=== PATIENT | male | born 1985 | race Caucasian/White ===

== ENCOUNTER 2017-11-19 11:41 | Emergency (ER) | payer SELFPAY ==
[2017-11-19 12:34] VITALS: BP 126/75; PULSE 61; RESP 14; TEMP 97.5; O2SAT 99
[2017-11-19] MEDS ORDERED: GELATIN 12 MM/7 MM FOAM TOPICAL ONE (14:00)
--- NOTE | 2017-11-19 14:05 | PD ---
HPI Chief Complaint: Laceration/Skin Injury Time Seen by Provider: 13:30 Travel History International Travel<30 days: No Contact w/Intl Traveler<30days: No Traveled to known affect area: No History of Present Illness HPI This is a 32-year-old male here with a laceration to his right thumb pad caused by scissors approximately 20 hours ago. He presents today for evaluation for continued bleeding of the laceration site. He cleansed the area thoroughly after the injury. He applied a clean dry pressured dressing. Today the wound continued to bleed prompting his visit. He reports normal sensation and full range of motion of the finger. He has pain in the site of the laceration only. Symptom severity mild to moderate. PFSH Past Medical History Medical History: Denies Significant Hx Diminished Hearing: No Tetanus Vaccination: Unknown Influenza Vaccination: No Social History Alcohol Use: Yes Tobacco Use: Yes (1ppd) Substance Use: No Allergies-Medications (Allergen,Severity, Reaction): Coded Allergies: Penicillins (Verified Allergy, Severe, Anaphylaxis, 11/19/17) codeine (Verified Allergy, Severe, Anaphylaxis, 11/19/17) morphine (Verified Allergy, Severe, Anaphylaxis, 11/19/17) Reported Meds & Prescriptions Reported Meds & Active Scripts Active Bactrim DS (Sulfamethoxazole-Trimethoprim) 800-160 Mg Tab 1 Tab PO BID Review of Systems Except as stated in HPI: all other systems reviewed are Neg General / Constitutional: No: Fever Eyes: No: Visual changes HENT: No: Headaches Cardiovascular: No: Chest Pain or Discomfort Respiratory: No: Shortness of Breath Gastrointestinal: No: Abdominal Pain Genitourinary: No: Dysuria Physical Exam Narrative GENERAL: Alert and well-appearing 32-year-old male SKIN: Warm and dry. 1 cm avulsion type laceration to the thumb pad with active bleeding. It is nonpulsatile. HEAD: Normocephalic. EYES:No injection or drainage. NECK: Supple MUSCULOSKELETAL: No cyanosis, or edema. Right upper extremity: laceration to the right thumb pad. Patient is able to flex and extend thumb joints without difficulty and against resistance. Normal sensation distally. Brisk cap refill. Data Data Last Documented VS Vital Signs Date Time Temp Pulse Resp B/P (MAP) Pulse Ox O2 Delivery O2 Flow Rate FiO2 11/19/17 12:34 97.5 61 14 126/75 (92) 99 Orders Orders Gelatin 12 Mm/7 Mm Top (Gelfoam 12 Mm/7 (11/19/17 14:00) MDM Medical Decision Making Medical Screen Exam Complete: Yes Emergency Medical Condition: Yes Differential Diagnosis Finger laceration, wound infection, tendon/ligamental injury Narrative Course This is a 32-year-old male here with a leading laceration to the right thumb itch occurred approximately 20 hours ago. The digit is neurovascularly intact. Surgicel foam was applied and hemostasis was achieved. Sterile dressing was applied. Patient is to follow-up with hand surgeon. Patient verbalizes understanding and agrees to plan Diagnosis Primary Impression: Thumb laceration Qualified Codes: S61.011A - Laceration without foreign body of right thumb without damage to nail, initial encounter Referrals: Primary Care Physician Additional Instructions: Leave the dressing in place for 2 days. Remove dressing by first running cool water over the finger. Reapply dressing daily. Scripts Sulfamethoxazole-Trimethoprim (Bactrim DS) 800-160 Mg Tab 1 TAB PO BID for Infection, #14 TAB 0 Refills Prov: Vero Antonio 11/19/17 Disposition: 01 DISCHARGE HOME Condition: Stable Vero Antonio Nov 19, 2017 14:05
[2017-11-19] MEDS ORDERED: BACT800T5 PO (15:05)
== END 2017-11-19 15:48 | disposition home or self-care (01) ==
LOC: NEPK 11:41
DX: S61.011A Laceration without foreign body of right thumb without damage to nail, initial encounter (principal); W26.8XXA Contact with other sharp object(s), not elsewhere classified, initial encounter; Y93.9 Activity, unspecified; Z72.0 Tobacco use
CPT/HCPCS: 12001